=== PATIENT | male | born 1985 | race African-American/Black ===

== ENCOUNTER 2020-02-15 15:41 | Emergency (ER) | payer SELFPAY ==
[~2020-02-15] VITALS: Ht 177.8 cm; Wt 90.0 kg
[2020-02-15 15:46] VITALS: BP 150/76
== END 2020-02-15 18:20 | disposition left against medical advice (07) ==
LOC: ER 15:41
DX: Z53.21 Procedure and treatment not carried out due to patient leaving prior to being seen by health care provider (principal)

== ENCOUNTER 2021-07-19 13:45 | Emergency (ER) | payer OTHER, MEDICAID ==
[~2021-07-19] VITALS: Ht 175.3 cm; Wt 96.0 kg
[2021-07-19 13:46] VITALS: BP 138/89
[2021-07-19] MEDS ORDERED: ONDANSETRON 4MG ODT PO ONE (14:30)
[2021-07-19] MEDS ORDERED: ONDA4TAB11 PO (14:31)
[2021-07-19] MEDS ORDERED: LORA-250 MT (14:31)
== END 2021-07-19 15:04 | disposition home or self-care (01) ==
LOC: ER 13:45
DX: F43.20 Adjustment disorder, unspecified (principal); F10.129 Alcohol abuse with intoxication, unspecified; Y90.9 Presence of alcohol in blood, level not specified; R11.10 Vomiting, unspecified; I49.8 Other specified cardiac arrhythmias; F41.9 Anxiety disorder, unspecified
CPT/HCPCS: 93005; 99283; Q0162